=== PATIENT | male | born 1995 | race Caucasian/White ===

== ENCOUNTER 2022-07-08 09:41 | Emergency (ER) | payer SELFPAY ==
[~2022-07-08] VITALS: Ht 182 cm; Wt 87.0 kg
[2022-07-08] MEDS ORDERED: CEPH500T PO (09:57)
--- NOTE | 2022-07-08 09:58 | ED Upper Extremity ---
General Chief Complaint: Laceration Stated Complaint: LT FINGER LAC Nursing Triage Note: Patient has presented to ER with an index finger laceration - he was cutting an apple at about 0330 this morning when he cut his finger. He went to urgent care and was sent to ER for sutures. Source: patient Exam Limitations: no limitations History of Present Illness Date Seen by Provider: Jul 08, 2022 Time Seen by Provider: 09:44 Initial Comments 26-year-old male with [id number] coming in after he was cutting an apple up with a knife roughly 6 hours prior to arrival when he hit his left index finger. Presented to the [facility] and they gave him a tetanus shot and referred him here. He is having very mild to no pain at this time. Denies any numbness, weakness, or any other concerns. Allergies and Home Medications Allergies Coded Allergies: No Known Drug Allergies (Unverified , 07/08/22) Patient Home Medication List Home Medication List Reviewed: Yes Cephalexin (Cephalexin) 500 Mg Tablet, 500 MG PO QID Prescribed by: ANNMARIE MENDIETA on 07/08/22 0957 Review of Systems Constitutional: No fever EENTM: no symptoms reported Respiratory: no symptoms reported Cardiovascular: no symptoms reported Gastrointestinal: no symptoms reported Genitourinary: no symptoms reported Musculoskeletal: see HPI Skin: see HPI Psychiatric/Neurological: No Symptoms Reported All Other Systems Reviewed Negative Unless Noted: Yes Past Ifwjlsk-Wmsoyl-Xepvro Hx Patient Social History Tobacco Use?: No Use of E-Cig and/or Vaping dev: No Substance use?: No Pt feels they are or have been: No Past Medical History Surgeries: No Physical Exam Vital Signs Vital Signs - First Documented 07/08/22 09:47 Temp 36.4 Pulse 63 Resp 20 B/P (MAP) 137/77 (97) Pulse Ox 100 O2 Delivery Room Air Capillary Refill : Height, Weight, BMI Height: '" Weight: lbs. oz. kg; 26.00 BMI Method: General Appearance: WD/WN, no apparent distress HEENT: PERRL/EOMI, normal ENT inspection, pharynx normal Cardiovascular: regular rate, rhythm Respiratory: chest non-tender, normal breath sounds Gastrointestinal: normal bowel sounds, non tender, soft Back: normal inspection Shoulder: normal inspection Elbow/Forearm: normal inspection Wrist: Yes normal inspection, Yes non-tender, Yes no evidence of injury, Yes normal ROM Hand: Left (Left index finger with a 2-1/2 cm laceration to the dorsal aspect of its overlying the PIP joint, joint capsule not visualized, no bone visualized, relatively superficial, normal extension, flexion of the digit, normal distal sensation and capillary refill) Neurologic/Tendon: normal sensation, normal motor functions, normal tendon functions Neurologic/Psychiatric: no motor/sensory deficits, alert, normal mood/affect Skin: normal color, warm/dry Procedures/Interventions Wound Location: Upper Extremities Other Wound Location Left index finger dorsal surface Wound Length (cm): 2.5 Wound's Depth, Shape: superficial, flap Irrigated w/ Saline (ccs): 500 Anesthesia: 1% Lidocaine (5 cc of 1% lidocaine were used for a digital block with good anesthesia achieved) Suture: Ethlion Suture Size: 5-0 Number of Sutures: 5 Progress After digital block was performed, anesthesia was achieved, the area was cleaned extensively, and closed with nonabsorbable suture. He needs to have the stitches out in 7 to 10 days. Progress/Results/Core Measures Results/Orders Vital Signs/I&O 07/08/22 09:47 Temp 36.4 Pulse 63 Resp 20 B/P (MAP) 137/77 (97) Pulse Ox 100 O2 Delivery Room Air Blood Pressure Mean: 97 Progress Progress Note : Progress Note 26-year-old male presenting for laceration to his left index finger. ABCs were intact and vitals were stable on presentation. The 2 and half centimeter laceration was cleaned, digital block was performed with good anesthesia, and sutures were then placed. He should come back in the next 7 to 10 days to get them out. Given its slightly delayed and he does have this overlying a joint although I do not see any type of true joint involvement on exam, we will start him on antibiotics. He was then discharged home in stable condition with strict return precautions Departure Impression Primary Impression: Finger laceration Qualified Codes: S61.211A - Laceration without foreign body of left index finger without damage to nail, initial encounter Disposition: HOME, SELF-CARE Condition: Stable Departure-Patient Inst. Decision time for Depature: 10:10 Referrals: RAJANI MIRELES APRN (PCP) Primary Care Physician [facility] (Family) Primary Care Physician Patient Instructions: Laceration Repair With Stitches ED Add. Discharge Instructions: Please come back in the next 7 to 10 days to get the stitches out. Take Tylenol or ibuprofen as needed for pain. If he have redness burning of her skin, pus coming out of the wound, or new fever with this, I would want you to be evaluated in the ER. You will be on antibiotics for the next week. Your left hand is to stay clean and dry for a week until the stitches are out. Do not submerge it in any type of water. Water can run over it briefly in the shower after 24 hours. You can go back to work, but does not do anything that get your wound wet or dirty Scripts Cephalexin (Cephalexin) 500 Mg Tablet 500 MG PO QID for 7 Days, #28 TAB Prov: ANNMARIE MENDIETA MD 07/08/22 Work/School Note: Work Release Form Date Seen in the Emergency Department: Jul 08, 2022 Return to Work: Jul 09, 2022 Restrictions: No Restrictions Other Restrictions Listed Below: left hand needs to stay clean and dry for a week ANNMARIE MENDIETA MD Jul 08, 2022 09:58
[2022-07-08 10:15] VITALS: BP 137/77
== END 2022-07-08 10:16 | disposition home or self-care (01) ==
LOC: EDUNIT# 09:41 → ER FS 09:44
DX: S61.211A Laceration without foreign body of left index finger without damage to nail, initial encounter (principal); W26.0XXA Contact with knife, initial encounter